=== PATIENT | female | born 1990 | race Caucasian/White ===

== ENCOUNTER → 2016-06-01 | Outpatient (CLI) | payer BC ==
[~2016-06-01] MED LIST: AMOXICILLIN 8751 TAB; ATIVAN 0.50.5 MG/TAB PO; BUSPAR DIVIDOSE15 MG PO; CELEXA10 MG; NO HOME MEDICATIONS; PRILOSEC 20MG20 MG PO; TUSSIN DM 10 M118 M1 PO; VALIUM 5MG T5 MG/TAB PO; ZOVIA 1/35E 351 TA1
== END ==
LOC: ZCOL.LAB 23:29
DX: J32.4 Chronic pansinusitis (principal)

== ENCOUNTER → 2016-07-17 | Outpatient (CLI) | payer BC | LOC: COL.LAB 11:58 | DX: Z01.89 Encounter for other specified special examinations (principal) ==